=== PATIENT | male | born 1945 | race Hispanic/Latino ===

== ENCOUNTER 2023-05-01 16:10 | Emergency (ER) | payer OTHER ==
[2023-05-01 18:03] LABS: #Basophils 0.1 thou/uL (0.0-0.2); #Eosinphils 0.1 thou/uL (0.0-0.7); #Monocytes 0.4 thou/uL (0.11-0.59); #Neutrophils 5.4 thou/uL (1.40-6.50); %Basophils 0.8 % (0.0-1.0); %Eosinophils 1.4 % (0.0-10.0); %Lymphocytes 16.9 % (21.0-51.0); %Monocytes 5.6 % (0.0-10.0); %Neutrophils 74.9 % (42.0-75.0); Hemoglobin 11.3 g/dL (14.0-18.0); Mean Corpuscular HGB CONC 31.4 g/dL (32.0-36.0); Mean Corpuscular Hemoglobin 26.9 pg (27.0-31.0); Mean Corpuscular Volume 85.7 fl (78.0-98.0); Platelet Count 229 10x3/uL (130-400); RBC Distribution Width 14.8 % (11.5-14.5); White Blood Cell (WBC) Count 7.2 10x3/uL (4.8-10.8)
[2023-05-01 18:31] LABS: ALT (SGPT) 22 U/L (8-55); AST (SGOT) 17 U/L (5-34); Albumin 3.4 g/dL (3.4-4.8); Alkaline Phosphatase 115 U/L (40-110); Anion Gap 8 mmol/L (10-20); BUN (Urea Nitrogen) 14 mg/dL (8.4-25.7); Calc. Creatinine Clearance 0 mL/min (70-130); Calcium 8.9 mg/dL (7.8-10.44); Carbon Dioxide 27 mmol/L (23-31); Chloride 109 mmol/L (98-107); Estimated GFR 87; Glucose 72 mg/dL (83-110); Potassium 3.6 mmol/L (3.5-5.1); Protein, Total 7.4 g/dL (5.8-8.1); Sodium 140 mmol/L (136-145)
[2023-05-01 18:34] LABS: Troponin I 0.013 ng/mL (< 0.028)
== END 2023-05-01 19:30 ==
LOC: EEVIPCON 16:10 → ERS 16:10
DX: S40.011A Contusion of right shoulder, initial encounter (principal); M25.531 Pain in right wrist; I87.2 Venous insufficiency (chronic) (peripheral); E11.42 Type 2 diabetes mellitus with diabetic polyneuropathy; I25.10 Atherosclerotic heart disease of native coronary artery without angina pectoris; E03.9 Hypothyroidism, unspecified; I10 Essential (primary) hypertension; Z79.84 Long term (current) use of oral hypoglycemic drugs; Z79.82 Long term (current) use of aspirin; Z79.899 Other long term (current) drug therapy; W18.30XA Fall on same level, unspecified, initial encounter
CPT/HCPCS: 36415; 80053; 83605; 84484; 85025

== ENCOUNTER 2023-05-30 17:23 | Inpatient (IN) | payer OTHER ==
[2023-05-30 18:15] LABS: #Monocytes 0.6 thou/uL (0.11-0.59); #Neutrophils 10.3 thou/uL (1.40-6.50); %Basophils 0.4 % (0.0-1.0); %Lymphocytes 3.1 % (21.0-51.0); %Monocytes 4.9 % (0.0-10.0); %Neutrophils 91.1 % (42.0-75.0); Hematocrit 38.7 % (42.0-52.0); Hemoglobin 12.2 g/dL (14.0-18.0); Mean Corpuscular HGB CONC 31.5 g/dL (32.0-36.0); Mean Corpuscular Hemoglobin 27.8 pg (27.0-31.0); Mean Corpuscular Volume 88.2 fl (78.0-98.0); Mean Platelet Volume 11.9 fL (7.4-10.4); Platelet Count 160 10x3/uL (130-400); RBC Distribution Width 14.6 % (11.5-14.5); Red Blood Cell (RBC) Count 4.39 mill/uL (4.70-6.10); White Blood Cell (WBC) Count 11.3 10x3/uL (4.8-10.8)
[2023-05-30 18:46] LABS: ALT (SGPT) 51 U/L (8-55); AST (SGOT) 37 U/L (5-34); Albumin 3.9 g/dL (3.4-4.8); Alkaline Phosphatase 172 U/L (40-110); Anion Gap 15 mmol/L (10-20); BUN (Urea Nitrogen) 11 mg/dL (8.4-25.7); Bilirubin, Total 1.6 mg/dL (0.2-1.2); Calc. Creatinine Clearance 0 mL/min (70-130); Calcium 8.8 mg/dL (7.8-10.44); Carbon Dioxide 20 mmol/L (23-31); Chloride 108 mmol/L (98-107); Estimated GFR 89; Globulin 3.4 g/dL (2.4-3.5); Glucose 185 mg/dL (83-110); Potassium 3.9 mmol/L (3.5-5.1); Protein, Total 7.3 g/dL (5.8-8.1); Sodium 139 mmol/L (136-145)
[2023-05-30 18:50] LABS: Troponin I Less than 0.010 ng/mL (< 0.028)
[2023-05-30 22:37] LABS: Troponin I 0.017 ng/mL (< 0.028)
[2023-05-30] MEDS ORDERED: Ibuprofen 200 MG TAB ONE (22:58)
[2023-05-31 00:21] LABS: #Monocytes 0.4 thou/uL (0.11-0.59); #Neutrophils 11.3 thou/uL (1.40-6.50); %Basophils 0.2 % (0.0-1.0); %Lymphocytes 2.3 % (21.0-51.0); %Monocytes 3.3 % (0.0-10.0); %Neutrophils 93.5 % (42.0-75.0); Hematocrit 35.4 % (42.0-52.0); Hemoglobin 11.2 g/dL (14.0-18.0); Mean Corpuscular HGB CONC 31.6 g/dL (32.0-36.0); Mean Corpuscular Hemoglobin 27.7 pg (27.0-31.0); Mean Corpuscular Volume 87.4 fl (78.0-98.0); Mean Platelet Volume 11.6 fL (7.4-10.4); Platelet Count 153 10x3/uL (130-400); RBC Distribution Width 14.8 % (11.5-14.5); Red Blood Cell (RBC) Count 4.05 mill/uL (4.70-6.10)
[2023-05-31 00:25] LABS: Bacteria/HPF None Seen HPF (None Seen); Bilirubin Negative (Negative); Blood, Urine Negative (Negative); CAUTI Indications for Culture Fever or rigors; Clarity Clear (Clear); Glucose, Urine (Dipstick) 200 mg/dL (Negative); Ketone, Urine Trace mg/dL (Negative); Leukocyte Negative Leu/uL (Negative); Nitrite Negative (Negative); Protein, Urine (Dipstick) 100 mg/dL (Neg-Trace); RBC/HPF 0-3 HPF (0-3); Specific Gravity, Urine 1.022 (1.002-1.036); Squamous Epithelial None Seen HPF (0-3); Urobilinogen 3 mg/dL (Less than 2); WBC/HPF 0-3 HPF (0-3); pH, Urine 6.5 (5.0-9.0)
[2023-05-31 00:26] LABS: Urine Culture Reflex No No
[2023-05-31 00:34] LABS: SARS-CoV-2 NAA Rapid Test Not Detected (NotDetected)
[2023-05-31 00:38] LABS: ALT (SGPT) 41 U/L (8-55); AST (SGOT) 21 U/L (5-34); Albumin 3.5 g/dL (3.4-4.8); Alkaline Phosphatase 146 U/L (40-110); Anion Gap 16 mmol/L (10-20); BUN (Urea Nitrogen) 14 mg/dL (8.4-25.7); CRP (Inflammatory) 4.06 mg/dL (= or < 0.5); Calc. Creatinine Clearance 0 mL/min (70-130); Calcium 8.4 mg/dL (7.8-10.44); Carbon Dioxide 20 mmol/L (23-31); Chloride 106 mmol/L (98-107); Estimated GFR 63; Globulin 3.2 g/dL (2.4-3.5); Glucose 260 mg/dL (83-110); Potassium 4.2 mmol/L (3.5-5.1); Protein, Total 6.7 g/dL (5.8-8.1); Sodium 138 mmol/L (136-145)
[2023-05-31] MEDS ORDERED: cefTRIAXone (ROCEPHIN) 1 GM VIAL ONE (00:50)
[2023-05-31] MEDS ORDERED: Ondansetron PF 4 MG/2 ML Vial IVP PRN (02:15)
[2023-05-31] MEDS ORDERED: Acetaminophen 325 MG TAB PO PRN (02:15)
[2023-05-31] MEDS ORDERED: Ondansetron ODT 4 MG TAB SL PRN (02:15)
[2023-05-31] MEDS ORDERED: Sodium Chloride 0.9% 1,000 ML IV SCH (02:30)
[2023-05-31] MEDS ORDERED: Vancomycin 1 GM/200 ML (FROZEN) BAG ONE (02:44)
[2023-05-31] MEDS ORDERED: Cefepime 2 GM VIAL ONE (02:44)
[2023-05-31] MEDS ORDERED: Dextrose 5% in Water 1,000 ML IV PRN (02:51)
[2023-05-31] MEDS ORDERED: Dextrose 50% Abboject 50 ML SYRINGE SLOW IVP PRN (02:51)
[2023-05-31] MEDS ORDERED: Glucagon 1 MG/ML KIT IM PRN (02:51)
[2023-05-31] MEDS ORDERED: HumaLOG 300 UNITS/3 ML VIAL SC PRN (02:56)
[2023-05-31] MEDS ORDERED: Insulin Regular 300 UNITS/3 ML VIAL SC PRN (03:24)
[2023-05-31] MEDS: Lactated Ringer's 1,000 ML IV SCH ×2 (03:54→12:46)
[2023-05-31 04:05] LABS: Hemoglobin A1c 7.3 % (4.0-6.0)
[2023-05-31 04:18] LABS: Cardiac Risk 3.1 (Less than 4.5)
[2023-05-31 04:27] VITALS: BMI 34.4
[2023-05-31 04:38] LABS: HIV (1/2) Antibody/Antigen Non-Reactive (NonReactive); HIV 1/2 INDEX 0.17 S/CO (<1.00)
[2023-05-31] MEDS ORDERED: Vancomycin 1 GM in Premix Bag 1 BAG IVPB SCH ×2 (04:45→09:00)
[2023-05-31 04:46] LABS: HBCM Index 0.06 S/CO (0-0.79); HBSAg Index 0.33 S/CO (0-0.99); Hep A IgM AB Non-Reactive S/CO (NonReactive); Hep A IgM S/CO 0.31 S/CO (0-0.79); Hep B Surf Ag Non-Reactive S/CO (NonReactive); Hep C IgG Ab Non-Reactive S/CO (NonReactive); Hep C Index 0.14 S/CO (0-0.79); Hepatitis B Core IgM Abs Non-Reactive S/CO (NonReactive)
[2023-05-31] MEDS ORDERED: metFORMIN 500 MG TAB PO SCH (07:30)
[2023-05-31] MEDS ORDERED: Levothyroxine Sodium 50 MCG TAB PO SCH (07:30)
[2023-05-31 07:57] VITALS: TEMP 100.6
[2023-05-31] MEDS ORDERED: Aspirin 81 mg Enteric Coated Tablet PO SCH (09:00)
[2023-05-31] MEDS ORDERED: Empagliflozin 10 MG TAB PO SCH (09:00)
[2023-05-31] MEDS ORDERED: Ferrous Sulfate 325 MG TAB PO SCH (09:00)
[2023-05-31] MEDS ORDERED: Lisinopril 5 MG TAB PO SCH (09:00)
[2023-05-31] MEDS ORDERED: Potassium Chloride 20 MEQ TAB PO SCH (09:00)
[2023-05-31] MEDS ORDERED: Insulin Regular 300 UNITS/3 ML VIAL SC SCH (09:00)
[2023-05-31] MEDS ORDERED: HumuLIN 70/30 100 Unit/ ml 10 ml Vial SC SCH (09:00)
[2023-05-31] MEDS ORDERED: Iopamidol-370 76% 500 ML MDV (1 ML CHARGE) ONE (10:32)
[2023-05-31 12:09] LABS: Syphilis Antibody Nonreactive (Nonreactive); Syphilis Antibody Index 0.07 S/CO (<1.00 Non-Reactive)
[2023-05-31] MEDS: Cefepime 2 GM in Sodium Chloride 0.9% 100 ML IVPB SCH ×2 (14:55→15:37)
[2023-05-31] MEDS ORDERED: Cefepime 1 GM in Sodium Chloride 0.9% 100 ML IVPB SCH (17:00)
[2023-05-31 17:02] VITALS: BP 123/64
[2023-05-31] MEDS ORDERED: Atorvastatin Calcium 40 MG TAB PO SCH (21:00)
[2023-06-01] MEDS ORDERED: VANCOMYCIN 1.75 GM/500 ML BAG 1.75 GM in Premix Bag 1 BAG IVPB SCH (04:00)
[2023-06-03] MEDS ORDERED: FLU VACC QS2023(65UP)/MF59C/PF 60 MCG/0.5 ML SYRINGE IM ONE (09:00)
== END 2023-05-31 18:50 | disposition left against medical advice (07) | DRG 872 ==
LOC: ERS 17:23 → IMCU/EMU 05-31 01:47
PROVIDERS: ADMIT Family Medicine; ATTEND Family Medicine
DX: A41.9 Sepsis, unspecified organism (principal); C46.9 Kaposi's sarcoma, unspecified; E87.20 Acidosis, unspecified; L03.115 Cellulitis of right lower limb; I25.10 Atherosclerotic heart disease of native coronary artery without angina pectoris; I10 Essential (primary) hypertension; E86.0 Dehydration; E03.9 Hypothyroidism, unspecified; N40.0 Benign prostatic hyperplasia without lower urinary tract symptoms; I87.2 Venous insufficiency (chronic) (peripheral); E11.51 Type 2 diabetes mellitus with diabetic peripheral angiopathy without gangrene; E11.40 Type 2 diabetes mellitus with diabetic neuropathy, unspecified; R86.0 Abnormal level of enzymes in specimens from male genital organs; Z79.82 Long term (current) use of aspirin; Z79.4 Long term (current) use of insulin; Z79.84 Long term (current) use of oral hypoglycemic drugs; Z95.1 Presence of aortocoronary bypass graft; Z79.899 Other long term (current) drug therapy; Z79.890 Hormone replacement therapy; Z98.890 Other specified postprocedural states; Z90.49 Acquired absence of other specified parts of digestive tract; Z82.49 Family history of ischemic heart disease and other diseases of the circulatory system; Z87.891 Personal history of nicotine dependence; Z95.820 Peripheral vascular angioplasty status with implants and grafts; Z11.52 Encounter for screening for COVID-19
CPT/HCPCS: 36415; 36416; 71045; 71260; 74177; 80053; 80061; 80074; 81001; 83036; 83605; 84145; 84443; 84484; 85025; 86140; 86780; 87040; 87086; 87389; 93005; 93306; 96361; 96365; 96367; 97139; J0692; J0696; J1650; J1815; J3370-JW; J3490; J7120; Q9967